=== PATIENT | male | born 1970 | race Caucasian/White ===

== ENCOUNTER 2016-09-28 05:58 | Emergency (ER) | payer OTHER ==
[~2016-09-28] VITALS: Ht 180.3 cm; Wt 89.8 kg
[~2016-09-28 05:58] MED LIST: COGENTIN1 MG PO; GLUCOTROL10 MG PO; LOTENSIN10 MG PO; PIOGLITAZONE30 MG PO; RESTORIL30 MG PO; RISPERDAL0.25 MG PO; SIMVASTATIN40 M1 PO; [UNRECOGNIZED DRUG - REMARK]
[2016-09-28 06:03] VITALS: BP 111/86
--- NOTE | 2016-09-28 06:09 | NUR ---
AMBULATED TO ER BED 4
--- NOTE | 2016-09-28 06:13 | NUR ---
45Y M BIB SELF C/O AB AND CHEST PAIN X 1 WEEK DENIES TRAUMA TO THE AREA, IS NOT DIAPHORIETIC . PT DENIES N/V/D; SKIN IS PINK/WARM/DRY; AAOX4 WITH EVEN AND STEADY GAIT; LUNGS CLEAR BL; HR EVEN AND REGULAR; PT DENIES ANY FEVER, SOB, OR COUGH AT THIS TIME; PATIENT STATES PAIN OF 10/10 AT THIS TIME; VSS; PATIENT POSITIONED FOR COMFORT; HOB ELEVATED; BEDRAILS UP X2; BED DOWN. ER MD MADE AWARE OF PT STATUS.
--- NOTE | 2016-09-28 06:40 | NUR ---
Patient being evaluated by physician DR CARDOZA at bedside.
--- NOTE | 2016-09-28 06:42 | NUR ---
IV MANAGMENT TO DRAW LAB ORDERED, ER MD DR CARDOZA SAID TO LEAVE IV IN PLACE AFTER DRAWING LAB
--- NOTE | 2016-09-28 07:18 | NUR ---
Pt report given to VALE GATES . Transfer of care at this time.
[2016-09-28] MEDS ORDERED: ONDANSETRON 4 MG/2 ML VIAL IVP ONE (07:20)
[2016-09-28] MEDS ORDERED: FAMOTIDINE 20 MG/2 ML VIAL IVP ONE (07:20)
[2016-09-28] MEDS ORDERED: NACL 0.9% 1,000 ML IV ONE (07:20)
--- NOTE | 2016-09-28 07:20 | NUR ---
DR. SCHMITZ AT BEDSIDE. RECEIVED PT AAO, BUT SLEEPY, PT STILL WITH ABDOMINAL PAIN, NO VOMITTING NOTED, SKIN WARM TO TOUCH RESP. EVEN AND UNLABORED,
--- NOTE | 2016-09-28 07:41 | NUR ---
PT AWAKE, IVF ONGOING VIA PERIPHERAL LINE WELL TOLERATED, VITAL SIGN STABLE.
--- NOTE | 2016-09-28 08:29 | NUR ---
PT ABLE TO EAT 100 PERCENT OF HIS BREAKFAST AAO,NO VOMITTING NOTED.
--- NOTE | 2016-09-28 08:47 | NUR ---
Patient discharged with v/s stable. Written and verbal after care instructions given and explained. Patient alert, oriented and verbalized understanding of instructions. Ambulatory with steady gait. All questions addressed prior to discharge. ID band removed. Patient advised to follow up with PMD. Rx of RANITIDINE AND TYLENOL given. Patient educated on indication of medication including possible reaction and side effects. Opportunity to ask questions provided and answered.
[2016-09-28 08:48] VITALS: BP 121/75
== END 2016-09-28 08:47 | disposition home or self-care (01) ==
LOC: MED 05:58
DX: R10.13 Epigastric pain (principal); E11.9 Type 2 diabetes mellitus without complications; I10 Essential (primary) hypertension; F17.210 Nicotine dependence, cigarettes, uncomplicated; Z88.0 Allergy status to penicillin; Z88.5 Allergy status to narcotic agent
CPT/HCPCS: 36415; 80053; 81001; 82150; 83690; 85025; 96361; 96374; 96375; 99284; J2405; J3490; J7030

== ENCOUNTER 2016-09-29 14:23 | Emergency (ER) | payer SELFPAY ==
--- NOTE | 2016-09-29 14:36 | NUR ---
PATIENT LEFT WITHOUT BEING SEEN BY DR. CANCHOLA. NO FURTHER CARE PROVIDED FOR PATIENT.
== END 2016-09-29 14:36 | disposition left against medical advice (07) ==
LOC: MED 14:23
DX: R10.9 Unspecified abdominal pain (principal); E11.9 Type 2 diabetes mellitus without complications; I10 Essential (primary) hypertension; Z88.0 Allergy status to penicillin; Z88.5 Allergy status to narcotic agent; Z53.21 Procedure and treatment not carried out due to patient leaving prior to being seen by health care provider

== ENCOUNTER 2016-09-30 16:01 | Emergency (ER) | payer OTHER ==
[~2016-09-30] VITALS: Ht 175.3 cm; Wt 72.6 kg
[2016-09-30 16:29] VITALS: BP 104/69
--- NOTE | 2016-09-30 17:15 | NUR ---
Pt taken to bed 6.
--- NOTE | 2016-09-30 17:29 | NUR ---
45/M presents to ED with complains of generalized body aches, "not feeling good," feeling "hot and cold" for x1 week. Pt also c/o nausea, denies vomiting. C/o constipation and a decrease in appetite. Patient also states "I've had a runny nose." Pt appears calm and relaxed. No visible signs of distress noted. Patient is AOX4, VSS.
--- NOTE | 2016-09-30 17:30 | NUR ---
Patient being evaluated by physician at bedside.
[2016-09-30 17:52] VITALS: BP 104/69
--- NOTE | 2016-09-30 17:53 | NUR ---
Patient discharged with v/s stable. Written and verbal after care instructions given and explained. Patient alert, oriented and verbalized understanding of instructions. Ambulatory with steady gait. All questions addressed prior to discharge. ID band removed. Patient advised to follow up with PMD. Rx of ZOFRAN, COUGH SYRUP, TRAMADOL given. Patient educated on indication of medication including possible reaction and side effects. Opportunity to ask questions provided and answered.
--- NOTE | 2016-09-30 17:54 | NUR ---
Chart checked and completed. The patient's care was reviewed and supervised by Johnson Morales RN.
== END 2016-09-30 17:53 | disposition home or self-care (01) ==
LOC: MED 16:01
DX: B34.9 Viral infection, unspecified (principal); I10 Essential (primary) hypertension; E11.9 Type 2 diabetes mellitus without complications; F17.200 Nicotine dependence, unspecified, uncomplicated; Z88.0 Allergy status to penicillin; Z88.5 Allergy status to narcotic agent; Z71.6 Tobacco abuse counseling

== ENCOUNTER 2016-11-17 23:30 | Emergency (ER) | payer OTHER ==
[~2016-11-17] VITALS: Ht 180.3 cm; Wt 90.7 kg
[2016-11-17 23:36] VITALS: BP 115/80
--- NOTE | 2016-11-18 01:00 | NUR ---
PT. AMBULATED TO ER BED 5
--- NOTE | 2016-11-18 01:03 | NUR ---
46Y/F PATIENT PRESENTS TO ED WITH C/O GENERALIZED BODY PAIN X 1 DAY . PT STATES HAVING SOB, COUGH AND GENERALIZED BODY PAIN TODAY, DENIES FEVER . DENIES N/V/D; SKIN IS PINK/WARM/DRY; AAOX4 WITH EVEN AND STEADY GAIT; LUNGS CLEAR BL; HR EVEN AND REGULAR; PT DENIES ANY FEVER, CP, SOB, OR COUGH AT THIS TIME; PATIENT STATES PAIN OF 10/10 AT THIS TIME; VSS; PATIENT POSITIONED FOR COMFORT; HOB ELEVATED; BEDRAILS UP X2; BED DOWN. ER MD MADE AWARE OF PT STATUS.
--- NOTE | 2016-11-18 01:36 | NUR ---
Patient being evaluated by DR. SOUSA at bedside.
--- NOTE | 2016-11-18 01:52 | NUR ---
Dr. Tomas evaluating patient at bedside.
[2016-11-18 02:20] VITALS: BP 115/80
--- NOTE | 2016-11-18 02:20 | NUR ---
Patient discharged with v/s stable. Written and verbal after care instructions given and explained BY DR SOUSA Patient alert, oriented and verbalized understanding of instructions. Ambulatory with steady gait. All questions addressed prior to discharge. ID band removed. Patient advised to follow up with PMD. Rx of AUGMENTIN, FIORICET given. Patient educated on indication of medication including possible reaction and side effects. Opportunity to ask questions provided and answered.
== END 2016-11-18 02:20 | disposition home or self-care (01) ==
LOC: MED 23:30
DX: S61.253A Open bite of left middle finger without damage to nail, initial encounter (principal); G44.209 Tension-type headache, unspecified, not intractable; E11.9 Type 2 diabetes mellitus without complications; I10 Essential (primary) hypertension; F17.200 Nicotine dependence, unspecified, uncomplicated; Z76.5 Malingerer [conscious simulation]; Z88.5 Allergy status to narcotic agent; Z88.0 Allergy status to penicillin; W54.0XXA Bitten by dog, initial encounter; Y93.89 Activity, other specified; Y92.89 Other specified places as the place of occurrence of the external cause; Y99.8 Other external cause status

== ENCOUNTER 2017-05-02 15:07 | Emergency (ER) | payer OTHER ==
[~2017-05-02] VITALS: Ht 170.2 cm; Wt 73.5 kg
[~2017-05-02 15:07] MED LIST changes: -COGENTIN1 MG PO; +GLIP10TA3 PO; -GLUCOTROL10 MG PO; -LOTENSIN10 MG PO; -PIOGLITAZONE30 MG PO; -RESTORIL30 MG PO; -RISPERDAL0.25 MG PO; -SIMVASTATIN40 M1 PO; -[UNRECOGNIZED DRUG - REMARK]
[2017-05-02 15:40] VITALS: BP 102/45
--- NOTE | 2017-05-02 15:50 | NUR ---
Pt bib self for abdominal wound check; had hernia repair 04/26/17 at [facility] hx; dm, htn, asthma, hernia rx; --- . DENIES N/V/D; SKIN IS PINK/WARM/DRY; AAOX4 WITH EVEN AND STEADY GAIT; LUNGS CLEAR BL; HR EVEN AND REGULAR; PT DENIES ANY FEVER, CP, SOB, OR COUGH AT THIS TIME; PATIENT STATES PAIN OF 8/10 AT THIS TIME; VSS; PATIENT POSITIONED FOR COMFORT; HOB ELEVATED; BEDRAILS UP X2; BED DOWN. ER MD MADE AWARE OF PT STATUS.
[2017-05-02] MEDS ORDERED: BACITRACIN OINT 500 UNITS/GM PKT TP ONE (16:37)
--- NOTE | 2017-05-02 16:37 | NUR ---
bacitracin and dressing applied by acute care certified nursing assistant, procedure tolerated well
[2017-05-02 16:42] VITALS: BP 116/76
--- NOTE | 2017-05-02 16:42 | NUR ---
Patient discharged with v/s stable. Written and verbal after care instructions given and explained. Patient alert, oriented and verbalized understanding of instructions. Ambulatory with steady gait. All questions addressed prior to discharge. ID band removed. Patient advised to follow up with PMD. Rx of benadryl, norco, ibuprofen given. Patient educated on indication of medication including possible reaction and side effects. Opportunity to ask questions provided and answered. Homeless packet provided on discharged.
== END 2017-05-02 16:42 | disposition home or self-care (01) ==
LOC: MED 15:07
DX: G89.18 Other acute postprocedural pain (principal); E11.9 Type 2 diabetes mellitus without complications; I10 Essential (primary) hypertension; Z88.0 Allergy status to penicillin; Z88.5 Allergy status to narcotic agent
CPT/HCPCS: 82948; 99283

== ENCOUNTER 2017-10-13 09:43 | Emergency (ER) | payer OTHER ==
[~2017-10-13] VITALS: Ht 170.2 cm; Wt 72.6 kg
[2017-10-13 09:59] VITALS: BP 128/94
--- NOTE | 2017-10-13 10:07 | NUR ---
PT AMBULATED OUT OF THE ER----WAS CALLED BUT DID NOT RETURN
== END 2017-10-13 10:07 | disposition left against medical advice (07) ==
LOC: MED 09:43
DX: R50.9 Fever, unspecified (principal); Z53.21 Procedure and treatment not carried out due to patient leaving prior to being seen by health care provider

== ENCOUNTER 2019-08-04 20:09 | Emergency (ER) | payer OTHER ==
--- NOTE | 2019-08-04 20:20 | NUR ---
CALLED PATIENT FOR TRIAGE. NO REPONSE.
--- NOTE | 2019-08-04 20:30 | NUR ---
CALLED PATIENT 2ND TIME. NO RESPONSE.
== END 2019-08-04 20:20 | disposition left against medical advice (07) ==
LOC: MED 20:09
DX: Z53.21 Procedure and treatment not carried out due to patient leaving prior to being seen by health care provider (principal)

== ENCOUNTER 2020-06-17 10:58 | Emergency (ER) | payer OTHER, SELFPAY ==
[~2020-06-17] VITALS: Ht 190.5 cm; Wt 89.8 kg
[2020-06-17 11:13] VITALS: BP 210/110
--- NOTE | 2020-06-17 11:17 | NUR ---
PT AMBULATED TO BED 10.
--- NOTE | 2020-06-17 11:20 | NUR ---
PATIENT PRESENTS TO ED WITH c/o cough x 3 weeks ALSO C/O RLQ PAIN AND "JOCK ITCH". PT STATES I HAVE BEEN SCREENED FOR COVID TWICE, BOTH NEGATIVE. DENIES N/V/D; SKIN IS PINK/WARM/DRY; AAOX4 WITH EVEN AND STEADY GAIT; LUNGS CLEAR BL; HR EVEN AND REGULAR; PT DENIES ANY FEVER, CP, SOB, OR COUGH AT THIS TIME; PATIENT STATES PAIN OF 0/10 AT THIS TIME; VSS; PATIENT POSITIONED FOR COMFORT; HOB ELEVATED; BEDRAILS UP X2; BED DOWN. ER MD MADE AWARE OF PT STATUS.
--- NOTE | 2020-06-17 11:25 | NUR ---
PT AMB TO BED 10.
[2020-06-17] MEDS ORDERED: LABETALOL 100 MG/20 ML VIAL IVP ONE (11:30)
[2020-06-17] MEDS ORDERED: NACL 0.9% 1,000 ML IV ONE (11:30)
--- NOTE | 2020-06-17 11:30 | NUR ---
ATTACHED TO CM = ST
[2020-06-17 11:56] LABS: BASOPHILS # (AUTO) 0.1 K/uL (0.00-0.22); BASOPHILS % (AUTO) 1.4 % (0.0-2.0); EOSINOPHILS # (AUTO) 0.5 K/uL (0-0.4); EOSINOPHILS % (AUTO) 6.6 % (0.0-4.0); HEMATOCRIT 45.8 % (36-52); HEMOGLOBIN 15.6 g/dL (12.0-18.0); LYMPHOCYTES # (AUTO) 1.7 K/uL (2.0-11.5); LYMPHOCYTES % (AUTO) 21.7 % (20.5-51.1); MEAN CORPUSCULAR HEMOGLOBIN 30 pg (27-31); MEAN CORPUSCULAR HGB CONC 34 g/dL (33-37); MEAN CORPUSCULAR VOLUME 88.7 fL (80-94); MONOCYTES # (AUTO) 0.5 K/uL (0.8-1.0); MONOCYTES % (AUTO) 6.4 % (1.7-9.3); NEUTROPHILS # (AUTO) 5.1 K/uL (1.8-7.7); NEUTROPHILS % (AUTO) 63.9 % (42.2-75.2); PLATELET COUNT (AUTO) 204 K/uL (140-450); RED BLOOD CELL COUNT(AUTO) 5.16 MIL/uL (4.20-6.10); RED CELL DISTRIBUTION WIDTH 13.5 % (11.6-13.7); WHITE BLOOD COUNT (AUTO) 7.9 K/uL (4.8-10.8)
[2020-06-17] MEDS ORDERED: LABETALOL 100 MG/20 ML VIAL ONE (12:00)
[2020-06-17 12:31] LABS: ANION GAP 17.1 (8-16); CARBON DIOXIDE 26.5 mmol/L (21-32); CHLORIDE 96 mmol/L (98-107); POTASSIUM 4.6 mmol/L (3.5-5.1); SODIUM SERUM 135 mmol/L (136-145)
[2020-06-17 12:32] LABS: CREATININE 1.1 mg/dL (0.6-1.3); GFR ARICAN-AMERICAN 91 mL/min (>90); GLUCOSE 443 mg/dL (74-106); UREA NITROGEN, BLOOD 11 mg/dL (7-18)
[2020-06-17 12:33] LABS: ASPARTATE AMINOTRANSFERASE 11 U/L (15-37); TOTAL BILIRUBIN 0.3 mg/dL (0.0-1.0)
[2020-06-17 13:04] VITALS: BP 132/82
[2020-06-17] MEDS ORDERED: INSULIN REGULAR, HUMAN 100 UNIT/ML VIAL IVP ONE (13:15)
--- NOTE | 2020-06-17 13:20 | NUR ---
accucheck = 362. insulin held
--- NOTE | 2020-06-17 13:30 | NUR ---
voided per urinal, urine dipped and sent to lab. hina bond obtained and sent to lab
--- NOTE | 2020-06-17 13:57 | NUR ---
Patient discharged with v/s stable. Written and verbal after care instructions given and explained. Patient alert, oriented and verbalized understanding of instructions. Ambulatory with steady gait. All questions addressed prior to discharge. ID band removed. Patient advised to follow up with PMD. Rx of glipizide and lisinopril given. Patient educated on indication of medication including possible reaction and side effects. Opportunity to ask questions provided and answered.
[2020-06-17 14:03] LABS: APPEARANCE,URINE CLEAR (CLEAR); BILIRUBIN,URINE NEGATIVE (NEGATIVE); BLOOD, URINE NEGATIVE (NEGATIVE); COLOR,URINE YELLOW (YELLOW); LEUKOCYTE ESTERASE ,URINE NEGATIVE (NEGATIVE); NITRITE, URINE NEGATIVE (NEGATIVE); UGLUCOSE 3+ (NEGATIVE)
[2020-06-17 14:29] LABS: BARBITURATE, URINE NEGATIVE ng/ml (NEG <=200); BENZODIAZEPINE, URINE NEGATIVE ng/mL (NEG <=200); CANNABINOID, URINE NEGATIVE ng/mL (NEG <=50); COCAINE, URINE NEGATIVE ng/mL (NEG <=300); PHENCYCLIDINE SCREEN,URINE NEGATIVE ng/mL (NEG <=25)
[2020-06-17 14:30] LABS: OPIATE, URINE NEGATIVE ng/mL (NEG <=2000)
== END 2020-06-17 13:57 | disposition home or self-care (01) ==
LOC: MED 10:58
DX: E11.65 Type 2 diabetes mellitus with hyperglycemia (principal); I10 Essential (primary) hypertension; Z88.0 Allergy status to penicillin; Z88.6 Allergy status to analgesic agent; Z79.899 Other long term (current) drug therapy; Z20.828 Contact with and (suspected) exposure to other viral communicable diseases
CPT/HCPCS: 36415; 71045; 80053; 80305; 81003; 84484; 85025; 87426; 93005; 96361; 96374; 99291; G0482; J3490; J7030; U0003; 99285; J1815

== ENCOUNTER 2020-08-07 12:55 | Emergency (ER) | payer OTHER, SELFPAY ==
[~2020-08-07] VITALS: Ht 160 cm; Wt 93.0 kg
[2020-08-07 14:01] VITALS: BP 140/81
--- NOTE | 2020-08-07 14:34 | NUR ---
SEE COMPLETE ASSESSMENT.
--- NOTE | 2020-08-07 14:35 | NUR ---
Patient discharged with v/s stable. Written and verbal after care instructions given and explained. Patient alert, oriented and verbalized understanding of instructions. Ambulatory with steady gait. All questions addressed prior to discharge. ID band removed. Patient advised to follow up with PMD. Rx of promethazine, glipizide given. Patient educated on indication of medication including possible reaction and side effects. Opportunity to ask questions provided and answered.
== END 2020-08-07 14:35 | disposition home or self-care (01) ==
LOC: MED 12:55
DX: B34.9 Viral infection, unspecified (principal); H92.03 Otalgia, bilateral; E11.9 Type 2 diabetes mellitus without complications; I10 Essential (primary) hypertension; Z76.0 Encounter for issue of repeat prescription; Z79.84 Long term (current) use of oral hypoglycemic drugs; Z88.0 Allergy status to penicillin; Z88.5 Allergy status to narcotic agent
CPT/HCPCS: 99283

== ENCOUNTER 2020-08-21 15:04 | Emergency (ER) | payer OTHER, SELFPAY ==
--- NOTE | 2020-08-21 15:25 | NUR ---
LWBS or triaged.
== END 2020-08-21 15:25 | disposition left against medical advice (07) ==
LOC: MED 15:04
DX: Z53.21 Procedure and treatment not carried out due to patient leaving prior to being seen by health care provider (principal)

== ENCOUNTER 2021-01-06 15:45 | Emergency (ER) | payer OTHER, SELFPAY ==
[~2021-01-06] VITALS: Ht 165.1 cm; Wt 71.7 kg
[2021-01-06 15:51] VITALS: BP 133/100
--- NOTE | 2021-01-06 16:00 | NUR ---
Patient ambulated with steady gait to bed 8.
--- NOTE | 2021-01-06 16:10 | NUR ---
PATIENT LEFT WITHOUT BEING SEEN BY DR. BARROW. NO FURTHER CARE PROVIDED FOR PATIENT.
[2021-01-06 16:20] VITALS: BP 133/100
== END 2021-01-06 16:10 | disposition left against medical advice (07) ==
LOC: MED 15:45
DX: R10.9 Unspecified abdominal pain (principal); Z53.21 Procedure and treatment not carried out due to patient leaving prior to being seen by health care provider

== ENCOUNTER 2021-08-10 04:51 | Emergency (ER) | payer OTHER, SELFPAY ==
[~2021-08-10 04:51] MED LIST changes: +BENZ100C6 PO; +LEVO750T51 PO; +OMEP20EC11 PO
--- NOTE | 2021-08-10 05:00 | NUR ---
CALLED TO TRIAGE NO RESPONSE PATIENT LEFT WITHOUT BEING SEEN BY DR. BARRAGAN. NO FURTHER CARE PROVIDED FOR PATIENT.
--- NOTE | 2021-08-10 05:05 | NUR ---
CALLED FOR THE SECOND TIME, NO RESPONSE
--- NOTE | 2021-08-10 05:25 | NUR ---
CALLED FOR THE THIRD TIME ,NO ANSWER, CALL VIA TELEPHONE
--- NOTE | 2021-08-10 06:00 | NUR ---
PATIENT LEFT WITHOUT BEING SEEN BY DR. bella. NO FURTHER CARE PROVIDED FOR PATIENT.
== END 2021-08-10 05:00 | disposition left against medical advice (07) ==
LOC: MED 04:51
DX: Z53.21 Procedure and treatment not carried out due to patient leaving prior to being seen by health care provider (principal)

== ENCOUNTER 2021-08-29 08:44 | Emergency (ER) | payer OTHER ==
[~2021-08-29] VITALS: Ht 167.6 cm; Wt 61.7 kg
[2021-08-29 08:50] VITALS: BP 139/83
[2021-08-29 09:10] VITALS: BP 139/83
--- NOTE | 2021-08-29 09:10 | NUR ---
Patient discharged with v/s stable. Written and verbal after care instructions given and explained. Patient verbalized understanding. Ambulatory with steady gait. All questions addressed prior to discharge. Advised to follow up with PMD.
--- NOTE | 2021-08-29 09:10 | NUR ---
NO NURSING INTERVENTIONS PROVIDED
== END 2021-08-29 09:10 | disposition home or self-care (01) ==
LOC: MED 08:44
DX: F17.290 Nicotine dependence, other tobacco product, uncomplicated (principal); R11.2 Nausea with vomiting, unspecified; F17.200 Nicotine dependence, unspecified, uncomplicated; F20.9 Schizophrenia, unspecified; E11.9 Type 2 diabetes mellitus without complications; I10 Essential (primary) hypertension; Z88.0 Allergy status to penicillin; Z88.5 Allergy status to narcotic agent; Z79.899 Other long term (current) drug therapy; Z98.890 Other specified postprocedural states; Z71.6 Tobacco abuse counseling
CPT/HCPCS: 99281

== ENCOUNTER 2021-12-30 20:36 | Emergency (ER) | payer OTHER ==
[~2021-12-30] VITALS: Ht 160 cm; Wt 69.5 kg
[2021-12-30 20:42] VITALS: BP 138/90
--- NOTE | 2021-12-30 20:43 | NUR ---
Jose wang in [facility] - 12/30/21 at 2051 by [facility] pt taken to bed .
--- NOTE | 2021-12-30 20:48 | NUR ---
pt taken to bed 09.
--- NOTE | 2021-12-30 20:55 | NUR ---
ERMD AT BEDSIDE ASSESSING THE PT
[2021-12-30] MEDS ORDERED: GLIP10TA12 PO (21:04)
[2021-12-30] MEDS ORDERED: ACET-2619 PO (21:04)
[2021-12-30] MEDS ORDERED: ROB PO (21:04)
--- NOTE | 2021-12-30 21:10 | NUR ---
51 Y.O. M BIB SELF C/O throat discomfort xtoday. pt states "i think i have [place] virus". reports throat discomfort, migraine, and cough. PRODUCTIVE COUGH. PTS IS IN NO VISIBLE DISTRESS. HE IS NOT SOB. A&O X3, GCS 15 AND STABLE AT THIS TIME. hx:dm and htn rx:glipizide allergy;morphine and pcn
--- NOTE | 2021-12-30 21:21 | NUR ---
Patient discharged with v/s stable. Written and verbal after care instructions given and explained. Patient alert, oriented and verbalized understanding of instructions. Ambulatory with steady gait. All questions addressed prior to discharge. ID band removed. Patient advised to follow up with PMD. Rx of GLIPIZIDE, ROBITUSSIN AND TYLENOL given. Patient educated on indication of medication including possible reaction and side effects. Opportunity to ask questions provided and answered. GIVEN AN ADDRESS TO A CLINIC TO GET CARE FOR DM.
== END 2021-12-30 21:21 | disposition home or self-care (01) ==
LOC: MED 20:36
DX: J06.9 Acute upper respiratory infection, unspecified (principal); E11.9 Type 2 diabetes mellitus without complications; I10 Essential (primary) hypertension; Z76.0 Encounter for issue of repeat prescription; Z88.0 Allergy status to penicillin; Z88.5 Allergy status to narcotic agent
CPT/HCPCS: 99283

== ENCOUNTER 2022-01-07 07:32 | Emergency (ER) | payer OTHER ==
[~2022-01-07] VITALS: Ht 170.2 cm; Wt 70.1 kg
[~2022-01-07 07:32] MED LIST changes: +ACET-2619 PO; +GLIP10TA12 PO; +ROB PO
[2022-01-07 07:42] VITALS: BP 140/99
--- NOTE | 2022-01-07 07:48 | NUR ---
PT TO [facility] QUINTANILLA
--- NOTE | 2022-01-07 08:27 | NUR ---
Jose wang in [facility] - 01/07/22 at 0921 by OMARI PATIENT ELOPED FROM FACILITY. DISCHARGE INSTRUCTIONS NOT GIVEN TO PATIENT. DR. VASQUEZIED.
--- NOTE | 2022-01-07 08:27 | NUR ---
NO NURSING RENDEREDPatient discharged with v/s stable. Written and verbal after care instructions given and explained. Patient alert, oriented and verbalized understanding of instructions. Ambulatory with steady gait. All questions addressed prior to discharge. ID band removed. Patient advised to follow up with PMD. NO Rx given. Patient educated on indication of medication including possible reaction and side effects. Opportunity to ask questions provided and answered.
== END 2022-01-07 08:27 | disposition home or self-care (01) ==
LOC: MED 07:32
DX: R10.9 Unspecified abdominal pain (principal); E11.9 Type 2 diabetes mellitus without complications; I10 Essential (primary) hypertension; Z98.890 Other specified postprocedural states; Z79.899 Other long term (current) drug therapy; Z79.2 Long term (current) use of antibiotics; Z88.0 Allergy status to penicillin; Z88.5 Allergy status to narcotic agent
CPT/HCPCS: 99281